=== PATIENT | male | born 1945 | race Caucasian/White ===

== ENCOUNTER 2021-12-20 14:32 | Inpatient (IN) | payer OTHER ==
[~2021-12-20] VITALS: Ht 165.1 cm; Wt 88.9 kg
[2021-12-20 14:53] VITALS: BP 119/69
--- NOTE | 2021-12-20 15:31 | NUR ---
Dr. Cano evaluating patient at bedside.
[2021-12-20] MEDS ORDERED: MORPHINE SULFATE 4 MG/ML SYR IVP ONE (15:35)
[2021-12-20] MEDS ORDERED: ONDANSETRON 4 MG/2 ML VIAL IVP ONE (15:35)
[2021-12-20] MEDS ORDERED: NACL 0.9% 1,000 ML IV ONE (15:35)
--- NOTE | 2021-12-20 15:46 | NUR ---
76 y/o male bib self with c/o lower abdominal pain x2 days ago. Patient has 7/10 burning pain level. + nausea, + vomiting. Patient is also complaining of last bowel movement was 3 days ago. Patient's stomach is noted to be firm and tender. Medical History: HTN, Arthritis and GERD NKDA
--- NOTE | 2021-12-20 15:47 | NUR ---
Patient was taken to maging via gurney.
--- NOTE | 2021-12-20 15:53 | NUR ---
Patient returned from imaging
--- NOTE | 2021-12-20 16:12 | NUR ---
76/M PRESENTS TO ED WITH C/O LOWER ABDOMINAL PAIN, N/V X2 DAYS. REPORTS PAIN IS 7/10 "BURNING" LIKE PAIN, REPORTS LAST BOWEL MOVEMENT WAS 3 DAYS AGO. ABDOMEN IS FIRM AND TENDER, DENIES TAKING MEDS FOR SYMPTOMS.
[2021-12-20 16:23] LABS: HEMATOCRIT 44.8 % (36-52); HEMOGLOBIN 14.5 g/dL (12.0-18.0); MEAN CORPUSCULAR HEMOGLOBIN 29 pg (27-31); MEAN CORPUSCULAR HGB CONC 32 g/dL (33-37); MEAN CORPUSCULAR VOLUME 87.8 fL (80-94); PLATELET COUNT (AUTO) 323 K/uL (140-450); RED CELL DISTRIBUTION WIDTH 15.2 % (11.6-13.7)
[2021-12-20] MEDS ORDERED: PIPERACILLIN/TAZOBACTAM 3.375 GM in DEXTROSE 5% 50 ML IV ONE (16:25)
[2021-12-20] MEDS ORDERED: NACL 0.9% 2,000 ML IV ONE (16:35)
[2021-12-20 16:40] LABS: ALBUMIN 2.3 g/dL (3.4-5.0); ANION GAP 12.9 (8-16); ASPARTATE AMINOTRANSFERASE 21 U/L (15-37); CARBON DIOXIDE 26.5 mmol/L (21-32); CHLORIDE 106 mmol/L (98-107); CREATININE 1.9 mg/dL (0.6-1.3); GLUCOSE 109 mg/dL (74-106); LIPASE 58 U/L (73-393); POTASSIUM 4.4 mmol/L (3.5-5.1); SODIUM SERUM 141 mmol/L (136-145); TOTAL BILIRUBIN 2.1 mg/dL (0.0-1.0); UREA NITROGEN, BLOOD 38 mg/dL (7-18)
[2021-12-20] MEDS ORDERED: PIPERACILLIN/TAZOBACTAM 3.375 GM VIAL IV ONE (16:42)
--- NOTE | 2021-12-20 16:49 | NUR ---
FARHAT specimen obtained, handed to CPT Deborah at bedside.
[2021-12-20] MEDS ORDERED: MORPHINE SULFATE 2 MG/ML SYR IVP PRN (16:55)
[2021-12-20] MEDS ORDERED: POTASSIUM CHLORIDE 40 MEQ, LIDOCAINE MPF 1% 25 MG in NACL 0.9% 250 ML IV PRN (16:55)
[2021-12-20] MEDS ORDERED: ONDANSETRON 4 MG/2 ML VIAL IM/IVP PRN (16:55)
[2021-12-20] MEDS ORDERED: HYDROcodone/APAP 5/325 MG 1 TAB TAB PO PRN ×2 (16:55→22:40)
[2021-12-20] MEDS ORDERED: DOCUSATE SODIUM 100 MG GELCAP PO PRN (16:55)
[2021-12-20] MEDS ORDERED: ACETAMINOPHEN 325 MG TAB PO PRN (16:55)
[2021-12-20] MEDS ORDERED: SODIUM PHOS / POTASSIUM PHOS 1 PKT PDR PO PRN (16:55)
[2021-12-20] MEDS ORDERED: MAG SULF 2000 MG/WATER PREMIX 50 ML IV PRN (16:55)
[2021-12-20 16:58] LABS: LYMPHOCYTES % (MANUAL) 8 % (20-46); MONOCYTES % (MANUAL) 1 % (5-12)
[2021-12-20] MEDS ORDERED: BENA20TA PO (17:07)
[2021-12-20] MEDS ORDERED: ALLO100T21 PO ×2 (17:07→17:19)
--- NOTE | 2021-12-20 17:13 | NUR ---
Ultrasound at bedside.
[2021-12-20] MEDS ORDERED: TAMS0.4C97 PO (17:19)
[2021-12-20] MEDS ORDERED: GEMF600T5 PO (17:19)
[2021-12-20 17:21] LABS: PHOSPHORUS 5.1 mg/dL (2.5-4.9)
--- NOTE | 2021-12-20 17:32 | NUR ---
Ellen caballero in [facility] - 12/20/21 at 1811 [address] [place] [employer] at bedside.
[2021-12-20 17:47] LABS: APPEARANCE,URINE CLEAR (CLEAR); BILIRUBIN,URINE 2+ (NEGATIVE); BLOOD, URINE NEGATIVE (NEGATIVE); LEUKOCYTE ESTERASE ,URINE NEGATIVE (NEGATIVE); PH,URINE 5.5 (5.0-9.0); UGLUCOSE NEGATIVE (NEGATIVE)
[2021-12-20 17:53] LABS: COLOR,URINE AMBER (YELLOW); NITRITE, URINE NEGATIVE (NEGATIVE)
--- NOTE | 2021-12-20 18:10 | NUR ---
Radiology at bedside
--- NOTE | 2021-12-20 18:22 | NUR ---
Patient will be admitted to care of Dr. butcher. Admited to Telemetry. Will go to room 120-A. Belongings list completed. Report to REYNALDO Hung.
--- NOTE | 2021-12-20 18:25 | NUR ---
The patient's care was reviewed and supervised by Mariajose Alegria RN.
[2021-12-20 18:30] VITALS: BP 117/70
--- NOTE | 2021-12-20 18:30 | NUR ---
RECEIVED PT FROM ER NURSE KG. PT WAS WHEELED VIA GURNEY FROM ER. PT ABLE TO AMBULATE FROM GURNEY TO BED. PT AWAKE. A&O4, ABLE TO COMMUNICATE NEEDS. RESPIRATIONS EVEN AND UNLABORED ON RA. NO DISTRESS NOTED. NO COMPLAINTS OF PAIN. PT ON TELE MONITOR. SKIN IS INTACT, WARM AND DRY TO TOUCH. IV SITE ON LAC 20G, SL AND RAC 20G WITH 2 BAGS NS RUNNING BOLUS. V/S STABLE. MRSA SWAB TAKEN. PT ORIENTED TO ROOM, UNIT AND ROUTINE. CALL LIGHT WITHIN REACH. SAFETY PRECAUTIONS IN PLACE. WILL CONTINUE TO MONITOR.
--- NOTE | 2021-12-20 18:50 | NUR ---
PT ON NPO. WILL ENDORSE TO INCOME TAX RETURN PREPARER NURSE.
[2021-12-20] MEDS ORDERED: fentaNYL citrate 0.05 MG/ML VIAL ONE ×2 (19:09→20:37)
[2021-12-20] MEDS ORDERED: PROPOFOL 200 MG/20 ML VIAL IV ONE (19:09)
--- NOTE | 2021-12-20 19:10 | NUR ---
ENDORSED PT TO ELECTRONIC OPERATOR NURSE FOR CONTINUITY OF CARE. ALL NEEDS MET THROUGHOUT SHIFT. PT IS STABLE.
[2021-12-20] MEDS ORDERED: SUCCINYLCHOLINE CHLORIDE 200 MG/10 ML VIAL IVP ONE (19:11)
[2021-12-20] MEDS ORDERED: PHENYLEPHRINE 10 MG/ML VIAL ONE (19:14)
--- NOTE | 2021-12-20 19:15 | NUR ---
RERCEIVED REPORT FROM LEISA INSURANCE COMMISSIONER FOR CONTINUITY OF CARE. PT IS STABLE IN BED. NEW ADMIT MRSA SWAB OBTAINED. VSS:BP-132/81, P-77, R-20, T-97.1, H1HXA=083% ON RM AIR. OR TEAM READY TO TAKE PT TO OR FOR LAP CHOLECYSTECTOMY. LEFT [facility] UNIT AT 1925.
[2021-12-20] MEDS ORDERED: SEVOFLURANE 250 ML BTL INH ONE (19:45)
[2021-12-20] MEDS ORDERED: ROCURONIUM 50 MG/5 ML VIAL IV ONE (20:03)
[2021-12-20] MEDS ORDERED: ePHEDrine 50 MG/ML VIAL ONE (20:06)
[2021-12-20] MEDS ORDERED: BUPIVACAINE-MPF 0.25% 30 ML VIAL INJ ONE (22:00)
[2021-12-20] MEDS ORDERED: LIDOCAINE/EPI 1% 1:100000 20 ML VIAL INJ ONE (22:00)
[2021-12-20] MEDS ORDERED: SUGAMMADEX SODIUM 200 MG/2 ML VIAL IV ONE (22:18)
--- NOTE | 2021-12-20 22:27 | NUR ---
Received notification from OR that pt will be admiited to ICU post abdominal surgery by Dr Rj PETERS
--- NOTE | 2021-12-20 22:35 | NUR ---
CHARGE NURSE REPORTED PT WILL BE GOING TO ICU AFTER OR.
[2021-12-20] MEDS ORDERED: HYDROmorphone 1 MG/ML AMP IVP PRN (22:40)
[2021-12-20] MEDS ORDERED: ONDANSETRON 4 MG/2 ML VIAL IV PRN (22:40)
[2021-12-20] MEDS ORDERED: MORPHINE SULFATE 4 MG/ML SYR IV PRN (22:40)
[2021-12-20 23:00] VITALS: BP 162/82
--- NOTE | 2021-12-20 23:00 | NUR ---
@ [id number] Received pt from OR accompanied by OR nurses , report received at bedside from Dr Miguel Ross, pt awake, alert sami speaking oxygen 6lters via mask no sign of shortness of breadth, O2 SAT 96% assisted with repositioning in bed, call light at reach, bed in low position colostomy on the left lower quadrant, stoma pink bloody drainage, surgical incision covered dressing unable to assess the site, TOM bilb drain serous sanguinous , lopez care done inserted in OR, continuos orientatiion to the unit education on care plan ongoing support to alleviates anxiety.@[id number] .
[2021-12-21] VITALS (17 sets, daily range): BP systolic 94–132; BP diastolic 58–74
[2021-12-21] MEDS ORDERED: PIPERACILLIN/TAZOBACTAM 2.25 GM VIAL IV ONE ×2 (00:26→05:46)
[2021-12-21] MEDS: PIPERACILLIN/TAZOBACTAM 2.25 GM in DEXTROSE 5% 50 ML IV SCH ×3 (00:38→12:30)
[2021-12-21] MEDS: DEXT 5% /NACL 0.9% 1,000 ML IV SCH ×3 (00:40→14:32)
--- NOTE | 2021-12-21 02:00 | NUR ---
@[id number] pt was fully awake cpmplain of abdominal pain 03/04 exretianting "bad as he said, Dilaudid 0.5mg ivp given on reassessmnet he verbalized relief and denies pain vitals signs stable. True Sosa drained 50cc. pt restful asleep.
[2021-12-21 06:00] LABS: BASOPHILS % (AUTO) 0.1 % (0.0-2.0); EOSINOPHILS % (AUTO) 0.1 % (0.0-4.0); HEMATOCRIT 42.1 % (36-52); HEMOGLOBIN 13.6 g/dL (12.0-18.0); LYMPHOCYTES # (AUTO) 0.9 K/uL (2.0-11.5); LYMPHOCYTES % (AUTO) 4.5 % (20.5-51.1); MEAN CORPUSCULAR HEMOGLOBIN 29 pg (27-31); MEAN CORPUSCULAR HGB CONC 32 g/dL (33-37); MEAN CORPUSCULAR VOLUME 88.1 fL (80-94); MONOCYTES # (AUTO) 0.3 K/uL (0.8-1.0); MONOCYTES % (AUTO) 1.5 % (1.7-9.3); NEUTROPHILS # (AUTO) 19.6 K/uL (1.8-7.7); NEUTROPHILS % (AUTO) 93.8 % (42.2-75.2); PLATELET COUNT (AUTO) 282 K/uL (140-450); RED BLOOD CELL COUNT(AUTO) 4.78 MIL/uL (4.20-6.10); RED CELL DISTRIBUTION WIDTH 15.8 % (11.6-13.7); WHITE BLOOD COUNT (AUTO) 20.9 K/uL (4.8-10.8)
[2021-12-21 06:08] LABS: ANION GAP 13.9 (8-16); CARBON DIOXIDE 23.4 mmol/L (21-32); CHLORIDE 110 mmol/L (98-107); CREATININE 1.4 mg/dL (0.6-1.3); GLUCOSE 119 mg/dL (74-106); POTASSIUM 4.3 mmol/L (3.5-5.1); SODIUM SERUM 143 mmol/L (136-145)
[2021-12-21 06:24] LABS: UREA NITROGEN, BLOOD 29 mg/dL (7-18)
--- NOTE | 2021-12-21 07:01 | NUR ---
PT 's daughter called updates given on pt's condition tolerating well all care and treatments, vitals signs stable, pain well palliated with medication, no complain incision site dry intact with dressing
--- NOTE | 2021-12-21 07:15 | NUR ---
Change of shift report at bedside given to ENID RN and GISSEL ophthalmology surgical technician site checked together as at this time pt awake alert denies pain vital signs stable restful and no changes in care plan
--- NOTE | 2021-12-21 07:26 | NUR ---
RECEIVED REPORT FROM BATTERY INSPECTOR REYNALDO SAWANT. Addendum: 12/21/21 at 0728 by Cameron Covarrubias RN RECEIVED REPORT FROM BATTERY INSPECTOR REYNALDO KC
--- NOTE | 2021-12-21 07:29 | NUR ---
phone call from dr grubbs, updated regarding pt condition. dr ordered to continue npo, allow sips of water only due to concern for postop ileus. monitor in icu for now.
[2021-12-21] MEDS: ENOXAPARIN 30 MG/0.3 ML SYR SUBQ SCH (08:15)
[2021-12-21] MEDS: PANTOPRAZOLE 40 MG INJ VIAL IVP SCH (08:15)
--- NOTE | 2021-12-21 08:55 | NUR ---
PATIENT HAS BEEN SCREENED AND CATEGORIZED HIGH NUTRITION RISK. PATIENT WILL BE SEEN WITHIN 1-2 DAYS OF ADMISSION. / RUPERTO CASTRO RD
--- NOTE | 2021-12-21 09:22 | NUR ---
PATIENT ALERT AND ONLY SPEAKS ARABIC. MILD WHEEZES AUSCULTATED UPPER LOBES OF THE LUNGS. PATIENT ON OXYGEN 6L/MIN VIA NASAL MASK. PATIENT IS NPO. COLOSTOMY INTACT ON LOWER LEFT ABDOMEN. TOM DRAIN PRESENT AND DRAINING WELL LIGHT RED IN COLOR. PATIEN ON SINUS RHYTHM. VITALS NORMAL AT THIS TIME. NS 0.9% RUNNING AT 80ML/HR. MORNING MEDS GIVEN ORDERED.
--- NOTE | 2021-12-21 10:03 | NUR ---
DR. CHAVEZ WITH PATIENT AT BEDSIDE.
--- NOTE | 2021-12-21 10:57 | NUR ---
12/21/21 RD INITIAL ASSESSMENT COMPLETED PLEASE REFER TO NUTRITION ASSESSMENT UNDER CARE ACTIVITY FOR ESTIMATED NUTRITIONAL NEEDS. 1. WHEN/IF MEDICALLY APPROPRIATE, GRADUALLY ADVANCE DIET TO CLEAR LIQUIDS AND TO REGULAR DIET TOLERATED 2. MONITOR GI SYMPTOMS AND NUTRITION-RELATED LAB VALUES 3. RD TO FOLLOW-UP 3-5 DAYS, MODERATE RISK RUPERTO CASTRO RD
--- NOTE | 2021-12-21 12:02 | NUR ---
DC PLANNIN YRS OLD MALE PATIENT WAS ADMITTED FROM HOME WITH A DX OF DIVERTICULITIS, PERORATED ,PNEUMOPERITONEUM. PATIENT HAS A HX OF DM, HTN, HLD, AND GOUT. CXR NO EVIDENCE OF ACUTE CARDIOPULMONARY DISEASE. CT ABD AND ABD US SHOWED NO BOWEL OBSTRUCTION, LIKELY SIGMOID DIVERTICULITIS WITH PERFORATION AND PNEUMOPERITONEUM. RAPID COVID TEST NEGATIVE. WBC 20.9 ADMINISTERED IVF, IV ABX ZOSYN. CONSULTED WITH SURGEON, ID AND PULMO. DR PETERS PERFORMED EXP LAP/SIGMOID COLECTOMY AND DIVERTING END COLOSTOMY WITH TOM DRAINAGE. DC PLAN TO GO HOME WHEN STABLE CM TO FOLLOW
--- NOTE | 2021-12-21 12:15 | NUR ---
SEEN AND EXAMINED BY DR RUIZ.
--- NOTE | 2021-12-21 12:45 | NUR ---
family at bedside.
--- NOTE | 2021-12-21 13:57 | NUR ---
XRAY AT BEDSIDE FOR KUB
--- NOTE | 2021-12-21 14:55 | NUR ---
SEEN AND EXAMINED BY DR PETERS, RECEIVED VERBAL TELE TRANSFER ORDERS.
--- NOTE | 2021-12-21 15:30 | NUR ---
patient resting and denies any c/o pain.
--- NOTE | 2021-12-21 18:00 | NUR ---
PT TRANSFERRED TO TELE BED 112B WITH GISSEL JACOBS.
--- NOTE | 2021-12-21 18:30 | NUR ---
patient transferred to [facility].
[2021-12-21] MEDS: PIPERACILLIN/TAZOBACTAM 3.375 GM in DEXTROSE 5% 50 ML IV SCH (18:33)
--- NOTE | 2021-12-21 19:20 | NUR ---
REPORT GIVEN MST WINDOW CLEANER REYNALDO GREEN.
--- NOTE | 2021-12-21 19:21 | NUR ---
RECEIVED ENDORSEMENT FROM DAY SHIFT NURSE FOR CONTINUITY OF PT CARE. PT IS AWAKE, ALERT AND VERBALLY RESPONSIVE IN ROMANIAN. PT IS FULL CODE, NOT KNOWN ALLERGY. RESPIRATION EVEN, NO SOB OR DISTRESS. SKIN COLOR IS NORMAL. PT IS ON NPO AND CAN HAVE ICE CHIPS. SALINE LOCK PRESENT ON RIGHT AND LEFT AC, BOTH ARE INTACT AND PATENT, IV FLUID D5 NS IS INFUSING WELL AT 80 ML/HR. NO REDNESS/RASHES OR SIGN/SYMPTOM OF INFECTION ON SKIN SURROUNDING IV SITE. PT DENIED OF PAIN/DISCOMFORT, HEADACHE OR DIZZINESS. COLOSTOMY STOMA NOTED WITHIN THE NORMAL, TOM DRAIN INTACT AND PATENT, HERCULES CATHETER INTACT AND PATENT.
--- NOTE | 2021-12-21 22:00 | NUR ---
PT IS ASLEEP. NO FACIAL GRIMACING.
[2021-12-22] VITALS: BP 121/68
--- NOTE | 2021-12-22 00:20 | NUR ---
PT IS ASLEEP, IVF IS INTACT AND INFUSING WELL.
[2021-12-22] MEDS: PIPERACILLIN/TAZOBACTAM 3.375 GM in DEXTROSE 5% 50 ML IV SCH ×4 (00:45→19:23)
[2021-12-22 04:00] VITALS: BP 119/67
[2021-12-22] MEDS: DEXT 5% /NACL 0.9% 1,000 ML IV SCH ×2 (07:00→19:23)
--- NOTE | 2021-12-22 07:20 | NUR ---
ENDORSED TO DAY SHIFT NURSE FOR CONTINUITY OF PT CARE. PT IS ON STABLE CONDITION.
--- NOTE | 2021-12-22 07:25 | NUR ---
PATIENT A&OX4, MALAWIAN SPEAKING. 6L/MIN VIA O2 MASK. SR ON MONITOR, CAPILLARY REFILL <3 SECONDS. 20G TO RAC INFUSING D5NS @ 80 ML/HR. 20G TO LAC, SALINE LOCK. COLOSTOMY INTACT ON LLQ. TOM DRAIN PRESENT IN RLQ AND DRAINING WELL, LIGHT RED FLUID. F/C TO GRAVITY DRAINING CLEAR YELLOW URINE. MIDLINE INCISION NOTED, NO ERYTHEMA OR PUS. AARON INTACT. STANDARD PRECAUTION. CALL LIGHT WITHIN REACH. BED IN LOWEST POSITION.
[2021-12-22 07:42] LABS: BASOPHILS % (AUTO) 0.1 % (0.0-2.0); EOSINOPHILS # (AUTO) 0.1 K/uL (0-0.4); EOSINOPHILS % (AUTO) 0.9 % (0.0-4.0); HEMATOCRIT 37.1 % (36-52); HEMOGLOBIN 12.1 g/dL (12.0-18.0); LYMPHOCYTES # (AUTO) 0.6 K/uL (2.0-11.5); LYMPHOCYTES % (AUTO) 4.2 % (20.5-51.1); MEAN CORPUSCULAR HEMOGLOBIN 29 pg (27-31); MEAN CORPUSCULAR HGB CONC 33 g/dL (33-37); MEAN CORPUSCULAR VOLUME 88.4 fL (80-94); MONOCYTES # (AUTO) 0.3 K/uL (0.8-1.0); MONOCYTES % (AUTO) 1.9 % (1.7-9.3); NEUTROPHILS % (AUTO) 92.9 % (42.2-75.2); PLATELET COUNT (AUTO) 209 K/uL (140-450); RED CELL DISTRIBUTION WIDTH 15.3 % (11.6-13.7)
[2021-12-22 08:00] VITALS: BP 141/81
[2021-12-22] MEDS: PANTOPRAZOLE 40 MG INJ VIAL IVP SCH (08:56)
[2021-12-22] MEDS: ENOXAPARIN 30 MG/0.3 ML SYR SUBQ SCH (08:57)
--- NOTE | 2021-12-22 09:00 | NUR ---
PT C/O NAUSEA. MEDICATED WITH PRN ZOFRAN 4MG.
--- NOTE | 2021-12-22 09:30 | NUR ---
NAUSEA RESOLVED. PT STATED HE IS FEELING BETTER.
[2021-12-22 12:00] VITALS: BP 135/78
--- NOTE | 2021-12-22 12:45 | NUR ---
FAMILY AT BEDSIDE. ALL COMFORT NEEDS MET AT THIS TIME.
--- NOTE | 2021-12-22 13:50 | NUR ---
CALLED SECURITY REGARDING PT BELONGINGS. PT STATES THEY WERE GIVEN TO SECURITY. SECURITY AT BEDSIDE.
--- NOTE | 2021-12-22 14:45 | NUR ---
SECURITY FOUND PT BELONGINGS AND THEY WERE RECEIVED BY PT.
[2021-12-22 15:30] LABS: ANION GAP 10.9 (8-16); CARBON DIOXIDE 24.9 mmol/L (21-32); CHLORIDE 110 mmol/L (98-107); CREATININE 1.2 mg/dL (0.6-1.3); GLUCOSE 103 mg/dL (74-106); POTASSIUM 3.8 mmol/L (3.5-5.1); SODIUM SERUM 142 mmol/L (136-145); UREA NITROGEN, BLOOD 17 mg/dL (7-18)
[2021-12-22 16:00] VITALS: BP 119/74
--- NOTE | 2021-12-22 18:35 | NUR ---
CONTACTED ALBA TANG ABOUT LEAKING HERCULES DESPITE EFFORTS TO REINFLATE THE BALLOON AND ADVANCE THE CATHETER. ORDERS TO D/C HERCULES RECEIVED.
--- NOTE | 2021-12-22 18:40 | NUR ---
D/C HERCULES. PT TOLERATED WELL. EDUCATED ON THE USE OF URINAL. PT VERBALIZED UNDERSTANDING.
--- NOTE | 2021-12-22 18:42 | NUR ---
FAMILY AT BEDSIDE.
--- NOTE | 2021-12-22 19:31 | NUR ---
ENDORSED REPORT TO PETER TRANSPORT CONDUCTOR RN FOR CONTINUITY OF CARE.
--- NOTE | 2021-12-22 19:32 | NUR ---
RECEIVED ENDORSEMENT FROM DAY SHIFT NURSE FOR CONTINUITY OF PT CARE. PT IS ON BED, AWAKE, ALERT AND VERBALLY RESPONSIVE IN KYRGYZ, PT IS ON STABLE CONDITION. PT IS FULL CODE, NOT KNOWN ALLERGY. RESPIRATION EVEN, NO SOB OR DISTRESS. SKIN COLOR IS NORMAL. MD PROGRESS DIET TO CLEAR LIQUID DIET. SALINE LOCK ON RIGHT AC IS DISLODGED AND WAS DC. LEFT AC INTACT AND PATENT, IV FLUID D5 NS IS INFUSING WELL AT 80 ML/HR. NO REDNESS/RASHES OR SIGN/SYMPTOM OF INFECTION ON SKIN SURROUNDING IV SITE. PT VERBALIZED OF TOLERABLE SURGICAL PAIN/DISCOMFORT WHEN MOVES. PT DENIED OF HEADACHE OR DIZZINESS. COLOSTOMY STOMA NOTED WITHIN THE NORMAL, TOM DRAIN INTACT AND PATENT. HERCULES CATHETER WAS DISCONTINUED AT 1840. PT DENIED OF FEELING URINATING AT THIS TIME.
[2021-12-22 20:00] VITALS: BP 134/73
--- NOTE | 2021-12-22 22:00 | NUR ---
PT IS AWAKE, ALERT, VERBALIZED BEARABLE PAIN WHEN MOVE.
[2021-12-23] VITALS: BP 126/76
--- NOTE | 2021-12-23 00:10 | NUR ---
PT IS ASLEEP SOUNDLY. NO FACIAL GRIMACING
[2021-12-23] MEDS: PIPERACILLIN/TAZOBACTAM 3.375 GM in DEXTROSE 5% 50 ML IV SCH ×5 (00:30→23:59)
--- NOTE | 2021-12-23 02:00 | NUR ---
PT IS USING URINAL. URINE IS CONCENTRATE. NO COMPLAINTS OF PAIN.
[2021-12-23 04:00] VITALS: BP 133/74
--- NOTE | 2021-12-23 04:00 | NUR ---
PT IS AWAKEN FOR VITAL SIGNS, COOPERATIVE. DENIED OF PAIN OR DISCOMFORT.
[2021-12-23 07:15] LABS: BASOPHILS % (AUTO) 0.2 % (0.0-2.0); EOSINOPHILS # (AUTO) 0.1 K/uL (0-0.4); EOSINOPHILS % (AUTO) 1.1 % (0.0-4.0); HEMATOCRIT 37.4 % (36-52); HEMOGLOBIN 12.2 g/dL (12.0-18.0); LYMPHOCYTES # (AUTO) 0.7 K/uL (2.0-11.5); MEAN CORPUSCULAR HEMOGLOBIN 29 pg (27-31); MEAN CORPUSCULAR HGB CONC 33 g/dL (33-37); MEAN CORPUSCULAR VOLUME 88.9 fL (80-94); MONOCYTES # (AUTO) 0.3 K/uL (0.8-1.0); MONOCYTES % (AUTO) 3.1 % (1.7-9.3); NEUTROPHILS # (AUTO) 9.1 K/uL (1.8-7.7); PLATELET COUNT (AUTO) 221 K/uL (140-450); RED BLOOD CELL COUNT(AUTO) 4.21 MIL/uL (4.20-6.10); WHITE BLOOD COUNT (AUTO) 10.3 K/uL (4.8-10.8)
--- NOTE | 2021-12-23 07:30 | NUR ---
RECEIVED REPORT FROM MEDICAL SUPPORT SPECIALIST NURSE. NO S/S OF DISTRESS. CALL LIGHT IN REACH ALL SAFETY MEASURES IN PLACE. 3L NC
--- NOTE | 2021-12-23 07:30 | NUR ---
ENDORSED PATIENT TO DAY SHIFT NURSE FOR CONTINUITY OF PT CARE. PT IS ON STABLE CONDITION.
[2021-12-23] MEDS: DEXT 5% /NACL 0.9% 1,000 ML IV SCH ×2 (07:37→23:46)
[2021-12-23 07:40] LABS: ANION GAP 12.6 (8-16); CARBON DIOXIDE 24.3 mmol/L (21-32); CHLORIDE 109 mmol/L (98-107); CREATININE 1.1 mg/dL (0.6-1.3); GLUCOSE 112 mg/dL (74-106); POTASSIUM 3.9 mmol/L (3.5-5.1); SODIUM SERUM 142 mmol/L (136-145); UREA NITROGEN, BLOOD 20 mg/dL (7-18)
[2021-12-23 08:00] VITALS: BP 122/75
[2021-12-23] MEDS: ENOXAPARIN 30 MG/0.3 ML SYR SUBQ SCH (08:28)
--- NOTE | 2021-12-23 08:53 | NUR ---
PT WAS OFF NC WHEN ARRIVED TO ADMINISTER MEDICATION. GRAIN PICKER VITALS OBTAINED NOTED 02 AT 91% ON RA. PT O2 REAPPLIED AND TITRATED TO 2L NC. PT DENIES SOB AND DISCOMFORT. CALL LIGHT IN REACH. ALL SAFETY MEASURES IN PLACE
[2021-12-23] MEDS: PANTOPRAZOLE 40 MG INJ VIAL IVP SCH (08:55)
[2021-12-23 09:18] LABS: LYMPHOCYTES % (AUTO) 6.7 % (20.5-51.1); NEUTROPHILS % (AUTO) 88.9 % (42.2-75.2)
[2021-12-23 12:00] VITALS: BP 130/72
--- NOTE | 2021-12-23 12:03 | NUR ---
PT STATES ANXIETY OVER EATING, WORRIED THAT IT WILL CAUSE HIM ABDOMINAL DISCOMFORT. PT EDUCATED AND DISCUSSED STANDING AND WALKING TO RELIEVE GAS PAIN. PT DENIES PAIN, N/V. PT VERBALIZED UNDERSTANDING. CALL LIGHT IN REACH. ALL SAFETY MEASURES IN PLACE
--- NOTE | 2021-12-23 15:29 | NUR ---
SPOKE TO DR. PETERS, SUTURE REMOVER KITS AT BEDSIDE PER REQUEST. TOM DRAIN EMPTIED, 50ML OUT. PT WAS ABLE TO STAND AND WALK WITHIN ROOM. EDUCATED PT ON WALKING TO RESTROOM A START. PT VERBALIZED UNDERSTANDING. NO S/S OF DISTRESS. CHANGED PT BANDAGE ON ABDOMEN, AARON INTACT, WELL APPROXIMATED. INFORMED PT THAT DR. PETERS WILL BE REMOVING TOM DRAIN TOMORROW. CALL LIGHT IN REACH. ALL SAFETY MEASURES IN PLACE. PT DENIES PAIN AT THIS TIME
[2021-12-23 16:00] VITALS: BP 145/62
--- NOTE | 2021-12-23 17:29 | NUR ---
IS PROVIDED BY RT. TEST INSPECTION ENGINEER WAS AT BEDSIDE, IV WAS INFILTRATED. IV REMOVED, CANULA INTACT. NEW IV OBTAINED IN LEFT FOREARM 20G. CT NOTIFIED TO COME BACK FOR PT TRANSFER
--- NOTE | 2021-12-23 17:50 | NUR ---
PT TAKEN FOR CT VIA WHEELCHAIR
--- NOTE | 2021-12-23 19:03 | NUR ---
ENDORSED PT TO WASTE OIL PUMPER NURSE. NO S/S OF DISTRESS. CALL LIGHT IN REACH. ALL SAFETY MEASURES IN PLACE. IV RUNNING PER MD ORDER. 2L NC
--- NOTE | 2021-12-23 19:04 | NUR ---
RECEIVED ENDORSEMENT FROM DAY SHIFT NURSE FOR CONTINUITY OF PT CARE. PT IS ON BED, AWAKE, ALERT AND VERBALIZED NEEDS. IS AT BEDSIDE. PT VERBALIZED THAT HE FEELS BETTER TODAY AFTER AMBULATION. EDUCATE PT ABOUT STATUS POST SURGERY PROCESS. IV FLUID IS INFUSING WELL AT LEFT FOREARM, D5NS AT 80ML/HR. PT IS ON STABLE CONDITION. NO SOB OR DISTRESS. CALL LIGHT WITHIN THE REACH.
[2021-12-23 20:00] VITALS: BP 132/66
--- NOTE | 2021-12-23 20:30 | NUR ---
PT O2 SAT ON VITAL SIGNS CHECKED BY MEDICAL TERMINOLOGIST IS 89%, UPON ASSESSMENT PT HAS NO O2 INHALATION, PT TOOK OFF NC AND O2 SAT RANGING 85-89%. EDUCATE PT AND ASSIST NC PLACEMENT BACK ON, O2 INHALATION AT 2 LPM, O2 SAT = 93%. NO SOB OR DISTRESS. PT VERBALIZED COMFORTABLE. CALL LIGHT WITHIN THE REACH.
[2021-12-23] MEDS: guaiFENesin 600 MG TABER PO SCH (21:00)
--- NOTE | 2021-12-23 21:52 | NUR ---
12/23/21 RD FOLLOW UP COMPLETED. PLEASE REFER TO NUTRITION ASSESSMENT UNDER CARE ACTIVITY FOR ESTIMATED NUTRITIONAL NEEDS. 1. CONTINUE WITH FULL LIQUID DIET. WHEN/IF MEDICALLY APPROPRIATE, GRADUALLY ADVANCE DIET TO REGULAR DIET TOLERATED 2. MONITOR GI SYMPTOMS AND NUTRITION-RELATED LAB VALUES 3. RD TO FOLLOW-UP IN 3-5 DAYS PATIENT IS MODERATE RISK. TIN WALLACE RD
--- NOTE | 2021-12-23 23:00 | NUR ---
PT IS AWAKE AND REQUESTED ASSISTANCE WITH URINAL, PT DENIED OF HAVING PAIN OR DISCOMFORT AT THIS TIME. SURGICAL DRESSING IS CLEAN AND DRY. CALL LIGHT WITHIN THE REACH.
[2021-12-24] VITALS: BP 132/66
--- NOTE | 2021-12-24 00:30 | NUR ---
TOM DRAINED = 50 CC OUTPUT. PT IS SLEEPING. NO SOB OR DISTRESS. CALL LIGHT WITHIN THE REACH.
--- NOTE | 2021-12-24 01:45 | NUR ---
PT IS ASLEEP AND NOTE RELAX, CALL LIGHT WITHIN THE REACH.
--- NOTE | 2021-12-24 03:45 | NUR ---
ASSISTED PT USING URINAL. COLOSTOMY CLEAN, NO NOTED STOOL IN COLOSTOMY BAG. NO SOB OR DISTRESS.
[2021-12-24 04:00] VITALS: BP 140/81
[2021-12-24] MEDS: PIPERACILLIN/TAZOBACTAM 3.375 GM in DEXTROSE 5% 50 ML IV SCH ×3 (05:25→17:24)
[2021-12-24 06:42] LABS: BASOPHILS % (AUTO) 0.5 % (0.0-2.0); EOSINOPHILS # (AUTO) 0.2 K/uL (0-0.4); EOSINOPHILS % (AUTO) 2.1 % (0.0-4.0); HEMATOCRIT 36.3 % (36-52); HEMOGLOBIN 11.9 g/dL (12.0-18.0); LYMPHOCYTES # (AUTO) 0.8 K/uL (2.0-11.5); LYMPHOCYTES % (AUTO) 9.8 % (20.5-51.1); MEAN CORPUSCULAR HEMOGLOBIN 29 pg (27-31); MEAN CORPUSCULAR HGB CONC 33 g/dL (33-37); MEAN CORPUSCULAR VOLUME 87.7 fL (80-94); MONOCYTES # (AUTO) 0.4 K/uL (0.8-1.0); MONOCYTES % (AUTO) 5.4 % (1.7-9.3); NEUTROPHILS # (AUTO) 6.4 K/uL (1.8-7.7); NEUTROPHILS % (AUTO) 82.2 % (42.2-75.2); PLATELET COUNT (AUTO) 222 K/uL (140-450); RED BLOOD CELL COUNT(AUTO) 4.14 MIL/uL (4.20-6.10); WHITE BLOOD COUNT (AUTO) 7.8 K/uL (4.8-10.8)
[2021-12-24 06:51] LABS: ANION GAP 10.8 (8-16); CARBON DIOXIDE 26.8 mmol/L (21-32); CHLORIDE 109 mmol/L (98-107); CREATININE 1.1 mg/dL (0.6-1.3); GLUCOSE 108 mg/dL (74-106); POTASSIUM 3.6 mmol/L (3.5-5.1); SODIUM SERUM 143 mmol/L (136-145); UREA NITROGEN, BLOOD 21 mg/dL (7-18)
--- NOTE | 2021-12-24 07:14 | NUR ---
DRAINED TOM = 10 CC.
--- NOTE | 2021-12-24 07:15 | NUR ---
PT IS ON STABLE CONDITION, DENIES OF PAIN, DISCOMFORT, HEADACHE OR DIZZINESS. NO SOB OR DISTRESS. IV INFUSING SELL. CALL LIGHT WITHIN THE REACH. ENDORSE TO DAY SHIFT NURSE FOR CONTINUITY OF PT CARE.
[2021-12-24 08:00] VITALS: BP 124/67
--- NOTE | 2021-12-24 08:00 | NUR ---
RECEIVED REPORT FROM PULP BLEACHER FOR CONTINUITY OF CARE. PATIENT ALERT AWAKE ORIENTED X4, SWAZI SPEAKING ONLY. DENIES PAIN AT THIS TIME. WITH IVF ON GOING AND INFUSING WELL. ON MONITOR SHOWS SR WITH PAC. WITH COLOSTOMY ON LEFT SIDE OF THE ABDOMEN INTACT. NO OUTPUT NOTED. START ON FULL LIQUID DIET AND TOLERATING WELL. WITH TOM OUTPUT OF 60 ML. CALL LIGHT WITHIN REACH. NEEDS ATTENDED. WILL CONTINUE TO MONITOR.
[2021-12-24] MEDS: guaiFENesin 600 MG TABER PO SCH ×2 (08:27→21:38)
[2021-12-24] MEDS: PANTOPRAZOLE 40 MG INJ VIAL IVP SCH (08:27)
[2021-12-24] MEDS: ENOXAPARIN 30 MG/0.3 ML SYR SUBQ SCH (08:34)
--- NOTE | 2021-12-24 10:30 | NUR ---
PT AMBULATES PATIENT, TOLERATING WELL. WILL CONTINUE TO MONITOR.
--- NOTE | 2021-12-24 11:43 | NUR ---
SEEN BY DR. PETERS AND REMOVED TOM.
[2021-12-24] MEDS: DEXT 5% /NACL 0.9% 1,000 ML IV SCH (11:52)
[2021-12-24 12:00] VITALS: BP 135/69
[2021-12-24] MEDS ORDERED: LEVO-315 PO (15:13)
[2021-12-24] MEDS ORDERED: LACT1.4C PO (15:13)
[2021-12-24] MEDS ORDERED: METR-520 PO (15:13)
--- NOTE | 2021-12-24 15:37 | NUR ---
DC PLANNING: THE PATIENT PRESENTED FROM HOME WITH C/O ABDOMINAL PAIN. WBC'S 21, BANDS 28, CT ABDOMEN/PELVIS SHOWS LIKELY SIGMOID DIVERTICULITIS WITH PERFORATION AND PNEUMOPERITONEUM. SURGICAL CONSULT RECOMMENDED URGENT SURGERY, TO OR FOR EXPLORATORY LAP, LYSIS OF ADHESIONS, DRAINAGE OF FECALENT PERITONITIS AND SIGMOID COLECTOMY WITH DIVERTING END COLOSTOMY. THE PATIENT LIVES WITH HIS TWO DAUGHTERS AND SPOUSE IN A 2 STORY HOUSE BUT HIS BEDROOM IS ON THE FIRST FLOOR. HE WAS INDEPENDENT IN ALL ACTIVITIES PRIOR TO SURGERY, HIS DAUGHTER STATES HE WILL NEED MORE ASSISTANCE NOW. HE HAS A PMD THAT HE SAW 2 MONTHS AGO. SHABBIR CALLED THE PATIENTS NURSE REGARDING FAMILY TEACHING AND SUPPLIES, THIS HAS NOT BEEN INITIATED, DC ORDER IN PLACE. SHABBIR CALLED THE WOUND CARE NURSE MEL TO NOTIFY HER OF THE NEW COLOSTOMY. MEL STATES SHE WILL EVALUATE THE PATIENT AND WRITE NOTES AND AN ORDER FOR SUPPLIES, RECOMMENDS HOME HEALTH. SHABBIR THEN SPOKE WITH THE PATIENTS DAUGHTER EMMA AGAIN TO EXPLAIN THE NEED FOR HIS TO LEARN COLOSTOMY CARE, SHE STATES THAT HER SISTER DOMINICK WHO LIVES WITH THE PATIENT IS OFF TOMORROW AND CAN ALSO COME, SHABBIR WILL NEED TO SPEAK WITH HER TO ARRANGE ([phone]). SHABBIR ALSO CALLED ABRAHAM AT [employer] THE PATIENT HAS MEDICARE A ONLY TO ASK ABOUT COVERAGE FOR SUPPLIES. ABRAHAM WILL CALL SHABBIR WITH AN ANSWER HE NEEDS TO SOURCE ANOTHER MILLING SUPERVISOR. SHABBIR THEN SPOKE WITH DOMINICK BY PHONE TO UPDATE HER AND LET HER KNOW ABOUT TEACHING AND POTENTIAL OUT OF POCKET COSTS FOR THE OSTOMY SUPPLIES AND HOME HEALTH. SHABBIR WILL FOLLOW UP IN AM AND WILL SPEAK WITH FAMILY AGAIN. Addendum: 12/25/21 at 1202 by Lilia Cody CM DC PLANNING: SHABBIR SPOKE WITH ADMISSIONS REGARDING PATIENT M/JAKI, HE HAS A SOC OF $1275 THAT HAS TO BE MET BEFORE HIS SUPPLIES AND HOME HEALTH CAN BE COVERED BY M/JAKI. CM THEN SPOKE HIS DAUGHTER DOMINICK AND EXPLAINED THE CRITERIA FOR HIS M/JAKI COVERAGE. DOMINICK AND THE PATIENT SPOUSE WILL BE HERE THIS MORNING FOR OSTOMY CARE INSTRUCTION, PATIENTS NURSE GORDON IS AWARE. CM FAXED ORDERS FOR OSTOMY SUPPLIES TO [facility] ([phone]) AND ASKED FOR OUT OF POCKET PRICING AND TIMELINE TO PROVIDE SUPPLIES. CM WILL FOLLOW. Addendum: 12/26/21 at 0903 by Lilia Cody CM DC PLANNING: CM SPOKE WITH SUJATA AT [facility] ([phone]), THEY ARE ABLE TO ACCEPT MEDICARE A AND BILL STRAIGHT MEDICARE FOR SERVICES INCLUDING OSTOMY SUPPLIES. REFERRAL FAXED TO [facility], THEY WILL ALSO WORK ON OSTOMY SUPPLIES WITH [facility]. SUJATA WILL CALL ONCE CASE IS REVIEWED. CM WILL FOLLOW. Addendum: 12/26/21 at 1017 by Lilia Cody CM DC PLANNING: THE PATIENT IS ACCEPTED ON SERVICE WITH [employer] ([phone]), START OF SERVICE TOMORROW. CM SPOKE WITH THE PATIENTS DAUGHTER DOMINICK BY PHONE TO ENDORSE DC TODAY AND START OF CARE WITH [employer]. FAMILY WILL STREET ROLLER ENGINEER THE PATIENT AT AROUND 1700 TODAY, PATIENTS RN MADE AWARE. CM WILL FOLLOW.
[2021-12-24 16:00] VITALS: BP 143/70
--- NOTE | 2021-12-24 16:17 | NUR ---
WOUND CARE EVALUATION NOTE: WOUND CARE DONE WITH THIS 76 Y/O PT. WITH S/P EX LAP W/ SIGMOID COLECTOMY, DIVERTING END COLOSTOMY, AND PERITONEAL LAVAGE ON 12/20/21. POC DISCUSSED WITH PRIMARY RN AND SEASONER HAND FOR ABDOMINAL WOUND CARE AND COLOSTOMY SUPPLIES. INTEGUMENTARY: -MID ABDOMINAL SURGICAL WOUNDS MULTIPLE AARON IN PLACE, CLEAN, NO S/S OF WOUND DEHISCENCE -LLQ ABD COLOSTOMY, PAM STOMA SKIN CLEAN AND INTACT, STOMA MOIST, BEEFY RED, ROUND SHAPE 1 5/8 (41MM), PROTRUSION 0.5CM , LUMEN OPENING TO 6 OCLOCK RECOMMENDATIONS: -PRIMARY RN CONTINUE TEACHING WOUND CARE AND COLOSTOMY CARE. -FOLLOW UP WITH SURGEON IN 7-10 DAYS UPON DISCHARGE -CLEANSE MID ABDOMEN AARON/ WOUND WITH NS. PAT DRY. APPLY ABDOMINAL BINDER WHEN UP FOR AMBULATION -OSTOMY CARE PER PROTOCOL AND DURING OSTOMY CARE PLEASE FOLLOW INSTRUCTION BELOW: -CHECK PAM STOMA SKIN CONDITION EVERY TIME WAFER CHANGED Q 5 DAYS AND PRN IF DISPLACED -APPLY SKIN PREP TO PAM-OSTOMY SKIN -APPLY STOMA ADHESIVE PAST TO THE WAFER, NEAR THE EDGE OF STOMA SKIN AREA, PAT FLAT. APPLY SKIN PREP TO PAM-STOMA SKIN - USE 1- PIECE EDUARDO OSTOMY DEVICES WITH 1 5/8 (41MM), FLEX TO FIT THE STOMA EXACTLY. NO SKIN SHOWING. APPLY PRE-SHAPE WAFER TO OSTOMY AND ATTACHED POUCH TO WAFER. CHANGE WAFER Q5 DAYS. -EMPTY AND RINSE POUCH WHEN IT IS 1/2 FULL. CHANGE POUCH Q5 DAYS AND PRN IF LEAK -MAY DISCHARGE HOME WITH SUPPLIES FOLLOWIN COMPLETE POUCH CHANGES 1 TUBE OF STOMA ADHESIVE PASTE 1 BOTTLE OF STOMA ADHESIVE POWDER 4 SKIN PREP Addendum: 12/24/21 at 1645 by Jamal Coughlin (Grace) RN POC DISCUSSED WITH PT. VIA SHAILAE GUARD SUPERVISOR ROBERTA [phone], HOWEVER, IT HAS INTERRUPTED DURING CONVERSATION AND BEEN DISCONNECTED DUE TO WIFI ISSUE. PER PT. HE UNDERSTAND SOME TRINIDADIAN AND UNDERSTAND TO LEARN COLOSTOMY CARE AND FOLLOW UP WITH SURGEON.
--- NOTE | 2021-12-24 17:10 | NUR ---
RECEIVED REPORT FROM DOMENIC JACOBS FOR CONTINUOUS OF CARE.
--- NOTE | 2021-12-24 19:29 | NUR ---
ENDORSED PT TO RECEPTIONIST SECRETARY NURSE FOR CONTINUOUS OF CARE
--- NOTE | 2021-12-24 19:30 | NUR ---
RECEIVED REPORT FROM DAY SHIFT NURSE DOMENIC FOR CONTINUITY OF CARE. PATIENT WAS LYING IN BED RESTING. IV SITE LFA 20G. PATIENT HAS COLOSTOMY BAG PLACED ON THE . PATIENT HAS NOT HAD A BOWEL MOVEMENT YET. TOM WAS REMOVED TODAY. PATIENT HAS CLOSED ABDOMINAL INCISION FROM SURGERY ON THE . PATIENT IS ON ROOM AIR, BREATHING IS NORMAL WITH SYMMETRICAL RISE AND FALL OF CHEST. BED IS IN LOWEST POSITION, WHEELS LOCKED, CALL LIGHT IN PLACE. WILL CONTINUE TO OBSERVE.
[2021-12-24 20:00] VITALS: BP 128/83
--- NOTE | 2021-12-24 21:45 | NUR ---
ADMINISTERED 2100 MEDICATIONS TO PATIENT AT 2138. PATIENT TOLERATED WELL. PATIENT WAS SLEEPING IN HIGH FOWLERS POSITION. COLOSTOMY BAG IS EMPTY. PATIENT IS DEMONSTRATING ACTIVE BOWEL MOVEMENTS WITH PASSING OF GAS. PATIENT'S BED IS IN LOWEST POSITION, WHEELS LOCKED, CALL LIGHT IN REACH. PATIENT REQUESTED LIGHT BE TURNED OFF SO HE CAN GO BACK TO SLEEP. TURNED OFF LIGHT UPON EXITING ROOM. WILL CONTINUE TO OBSERVE.
--- NOTE | 2021-12-24 23:40 | NUR ---
EMPTIED 360ML FROM URINAL. PATIENT WAS SLEEPING IN BED. BREATHING WAS NORMAL WITH SYMMETRICAL RISE AND FALL IN CHEST. WILL CONTINUE TO OBSERVE.
[2021-12-25] MEDS: PIPERACILLIN/TAZOBACTAM 3.375 GM in DEXTROSE 5% 50 ML IV SCH ×5 (00:06→23:10)
--- NOTE | 2021-12-25 00:11 | NUR ---
ADMINISTERED 0000 IVPB. PATIENT WAS SLEEPING. BED WAS IN LOWEST POSITION WITH WHEELS LOCKED, AND CALL LIGHT IN REACH. BREATHING WAS NORMAL WITH SYMMETRICAL RISE AND FALL OF CHEST. WILL CONTINUE TO OBSERVE.
--- NOTE | 2021-12-25 02:30 | NUR ---
LOOKED IN ON PATIENT. PATIENT WAS SLEEPING. BREATHING WAS NORMAL WITH SYMMETRICAL RISE AND FALL OF CHEST. WILL CONTINUE TO OBSERVE.
[2021-12-25 04:00] VITALS: BP 132/72
--- NOTE | 2021-12-25 05:15 | NUR ---
LOOKED IN ON PATIENT. PATIENT WAS SLEEPING. BREATHING WAS NORMAL WITH SYMMETRICAL RISE AND FALL OF CHEST. BED WAS IN LOWEST POSITION, WHEELS LOCKED, CALL LIGHT IN PLACE. WILL CONTINUE TO OBSERVER PATIENT.
--- NOTE | 2021-12-25 06:50 | NUR ---
ADMINISTERED 0600 IVPB TO PATIENT. PATIENT WAS SLEEPING. BREATHING WAS NORMAL WITH SYMMETRICAL RISE AND FALL OF CHEST. WILL CONTINUE TO OBSERVE.
[2021-12-25 07:07] LABS: BASOPHILS % (AUTO) 0.4 % (0.0-2.0); EOSINOPHILS # (AUTO) 0.1 K/uL (0-0.4); EOSINOPHILS % (AUTO) 1.5 % (0.0-4.0); HEMATOCRIT 37.5 % (36-52); HEMOGLOBIN 12.3 g/dL (12.0-18.0); LYMPHOCYTES # (AUTO) 1.1 K/uL (2.0-11.5); MEAN CORPUSCULAR HEMOGLOBIN 29 pg (27-31); MEAN CORPUSCULAR HGB CONC 33 g/dL (33-37); MEAN CORPUSCULAR VOLUME 87.7 fL (80-94); MONOCYTES # (AUTO) 0.5 K/uL (0.8-1.0); MONOCYTES % (AUTO) 5.2 % (1.7-9.3); NEUTROPHILS # (AUTO) 7.8 K/uL (1.8-7.7); NEUTROPHILS % (AUTO) 81.9 % (42.2-75.2); PLATELET COUNT (AUTO) 241 K/uL (140-450); RED BLOOD CELL COUNT(AUTO) 4.28 MIL/uL (4.20-6.10); RED CELL DISTRIBUTION WIDTH 14.7 % (11.6-13.7); WHITE BLOOD COUNT (AUTO) 9.6 K/uL (4.8-10.8)
[2021-12-25 07:30] LABS: ANION GAP 14.1 (8-16); CARBON DIOXIDE 24.3 mmol/L (21-32); CHLORIDE 104 mmol/L (98-107); CREATININE 0.9 mg/dL (0.6-1.3); GLUCOSE 91 mg/dL (74-106); POTASSIUM 3.4 mmol/L (3.5-5.1); SODIUM SERUM 139 mmol/L (136-145); UREA NITROGEN, BLOOD 19 mg/dL (7-18)
--- NOTE | 2021-12-25 07:35 | NUR ---
ENDORSED CONTINUITY OF CARE TO DAY SHIFT. PATIENT IS STABLE.
--- NOTE | 2021-12-25 07:48 | NUR ---
Got report from the night nurse , pt sleeping , no SOB. [id number]
[2021-12-25] MEDS: PANTOPRAZOLE 40 MG INJ VIAL IVP SCH ×2 (09:35→09:43)
[2021-12-25] MEDS: guaiFENesin 600 MG TABER PO SCH ×2 (09:36→21:14)
[2021-12-25] MEDS: ENOXAPARIN 30 MG/0.3 ML SYR SUBQ SCH (09:38)
[2021-12-25] MEDS: GAUZE TP SCH (12:14)
--- NOTE | 2021-12-25 14:36 | NUR ---
PHYSICAL THERAPY CO-SIGN The Physical Therapy Progress Notes documented by Collator Operator have been reviewed. Reviewed/Co-Signed by: Erin Wolfe Documentation Done by: ELGIN CORONA PTA Addendum: 12/25/21 at 1436 by Erin Wolfe PT Amended: Links added.
[2021-12-25 16:00] VITALS: BP 140/81
--- NOTE | 2021-12-25 18:40 | NUR ---
PT FAMILY EDUCATED ON THE COLOSTOMY BAG CARE, EMPTIED ABOUT 100 CC BM FROM THE COLOSTOMY BAG, TRACY
--- NOTE | 2021-12-25 19:30 | NUR ---
RECD RESTING IN BED, AWAKE, A/OX4. RESPIRATION EVEN AND UNLABORED. IV OF NS INFUSING AT TKO, LEFT FOREARM G20. INCISION IN THE MIDDLE OF ABDOMEN WITH AARON COVERED WITH DRESSING, DRY AND INTACT. WITH COLOSTOMY BAG AT THE LEFT SIDE OF ABDOMEN DRAINING MODERATE AMOUNT OF BROWN LIQUID STOOLS. ON FULL LIQUID DIET, TOLERATED WELL. DENIES PAIN 0/10.
--- NOTE | 2021-12-25 20:00 | NUR ---
Patient's Plan of Care was discussed and reviewed with MAURO Soni:
--- NOTE | 2021-12-25 21:15 | NUR ---
SCHEDULED MEDICATIONS FOR THE NIGHT ADMINISTERED.
[2021-12-26] VITALS: BP 135/75
--- NOTE | 2021-12-26 | NUR ---
SLEEPING COMFORTABLY IN BED, RESPIRATION EVEN AND UNLABORED. CALL LIGHT IN REACH.
--- NOTE | 2021-12-26 02:00 | NUR ---
CHECKED PATIENT, USING THE URINAL TO VOID. HAD VOIDED THREE TIMES ALREADY.
--- NOTE | 2021-12-26 04:30 | NUR ---
WITH 300 ML LIQUID STOOLS. CHANGED COLOSTOMY BAG.
[2021-12-26] MEDS: PIPERACILLIN/TAZOBACTAM 3.375 GM in DEXTROSE 5% 50 ML IV SCH (05:02)
--- NOTE | 2021-12-26 07:30 | NUR ---
ENDORSED TO AM SHIFT NURSE FOR CONTINUITY OF CARE.
--- NOTE | 2021-12-26 07:31 | NUR ---
RECEIVED REPORT FROM REGIONAL LOSS PREVENTION MANAGER NURSE. IN STABLE CONDITION. NO DISTRESS NOTED. COLOSTOMY BAG IN PLACE, IV SITE INTACT, PATENT, ON TKO PER MD ORDERS. REVIEWED PLAN OF CARE WITH PATIENT. SAFETY MEASURES IN PLACE, CALL LIGHT WITHIN REACH. WILL CONTINUE TO MONITOR.
[2021-12-26 08:00] VITALS: BP 150/88
[2021-12-26] MEDS: ENOXAPARIN 30 MG/0.3 ML SYR SUBQ SCH (08:54)
[2021-12-26] MEDS: guaiFENesin 600 MG TABER PO SCH (08:54)
--- NOTE | 2021-12-26 08:55 | NUR ---
SCHEDULED MEDICATIONS DUE GIVEN. WILL CONTINUE TO MONITOR.
[2021-12-26] MEDS: GAUZE TP SCH (12:11)
--- NOTE | 2021-12-26 12:54 | NUR ---
SCHEDULED MEDICATIONS DUE GIVEN. WILL CONTINUE TO MONITOR.
--- NOTE | 2021-12-26 13:00 | NUR ---
DC PLANNING PATIENT IS A 76 YEAR OLD MALE ADMITTED TO THE [facility]/ED ON 12/20/2021. DUE TO HAVING 2 DAY HISTORY OF MILD TO MODERATE BURNING AND NON-RADIATING, LOWER ABDOMINAL PAIN WITH ASSOCIATED NAUSEA AND VOMITING. SW MEET WITH PATIENT AT BEDSIDE TO DISCUSS AND GATHER HIS COLLATERAL INFORMATION. PATIENT WAS WAKE AND ALERT AT THE TIME OF VISIT. PATIENT REPORTED HAVING GOOD FAMILY SUPPORT AND REPORTED NOT HAVING A.D.IN PLACE, PATIENT DECLINED INF. FORMS PROVIDED BY [facility] AND REPORTED THAT HIS FAVIAN SAWANT IS HIS EMERGENCY CONTACT AND MEDICAL DECISION MAKER. PATIENT REPORTED NOT HAVING ISSUES GETTING OR TAKING HIS MEDICATIONS AND HAVING A GOOD RELATIONSHIP WITH HIS PCP PER PATIENT HE GOES TO THE DOCTOR ABOUT ONCE A MONTH AND GETS HIS MEDICATIONS FROM THE LOCAL [facility]. PATIENT REPORTED NOT HAVING OR NEEDING DME AND WANTING TO GO HOME WHEN HE IS READY FOR DISCHARGE. PATIENT STATED THAT HIS OR DAUGHTER WILL BE PICKING HIM UP AND ASSIST HIM WITH TRANSPORTATION. PATIENT THANKED [facility] FOR THE RESOURCES PROVIDED TO IN-HOME SUPPORTIVE SERVICES ([facility]). SW WILL FOLLOW UP NEEDED.
[2021-12-26 16:00] VITALS: BP 135/82
--- NOTE | 2021-12-26 17:32 | NUR ---
AND DAUGHTER AT BEDSIDE TO TAKE PATIENT HOME. DISCHARGE INSTRUCTIONS PROVIDED TO PATIENT/FAMILY AT BEDSIDE IN [facility], PATIENT PREFERRED DAUGHTER TO TRANSLATE. INSTRUCTIONS ON NEW MEDICATIONS, SIDE EFFECTS, DIET REGIMEN, AND FOLLOW-UP WITH PCP AND SURGEON. ANSWERED ALL OF PATIENT'S QUESTIONS REGARDING DISCHARGE. TO HELP PATIENT GET DRESSED THEN GOING TO WHEEL PATIENT DOWN. IV SITE REMOVED WITH MINIMAL BLOOD AND LUMEN COMPLETELY INTACT.
--- NOTE | 2021-12-26 17:45 | NUR ---
PATIENT DISCHARGED AT THIS TIME TO HOME IN PRIVATE VEHICLE IN STABLE CONDITION.
== END 2021-12-26 17:45 | disposition home or self-care (01) | DRG 853 ==
LOC: MED 14:32 → MTU 16:55 → MIC 23:22 → MTU 12-21 18:00
PROVIDERS: ADMIT Hospitalist; ATTEND Hospitalist
PROC: 0D1N0Z4 Bypass Sigmoid Colon to Cutaneous, Open Approach (ICD-10-PCS; principal; 2021-12-21)
PROC: 0DBN0ZZ Excision of Sigmoid Colon, Open Approach (ICD-10-PCS; 2021-12-21)
PROC: 3E1M38Z Irrigation of Peritoneal Cavity using Irrigating Substance, Percutaneous Approach (ICD-10-PCS; 2021-12-21)
PROC: 0DNU0ZZ Release Omentum, Open Approach (ICD-10-PCS; 2021-12-21)
DX: A41.9 Sepsis, unspecified organism (principal); E43 Unspecified severe protein-calorie malnutrition; N17.0 Acute kidney failure with tubular necrosis; R65.21 Severe sepsis with septic shock; J96.01 Acute respiratory failure with hypoxia; K65.8 Other peritonitis; K57.20 Diverticulitis of large intestine with perforation and abscess without bleeding; J98.11 Atelectasis; E78.5 Hyperlipidemia, unspecified; I10 Essential (primary) hypertension; N40.0 Benign prostatic hyperplasia without lower urinary tract symptoms; E86.0 Dehydration; K76.9 Liver disease, unspecified; M10.9 Gout, unspecified; N28.1 Cyst of kidney, acquired; Z20.822 Contact with and (suspected) exposure to COVID-19; Z79.899 Other long term (current) drug therapy; Z68.32 Body mass index [BMI] 32.0-32.9, adult
CPT/HCPCS: 36415; 71045; 74018; 76705; 80048; 80053; 81003; 83605; 83690; 83735; 84100; 85025; 86886; 86900; 86901; 86920; 87040; 87081; 88307; 93005; 96361; 96365; 96375; 97112; 97116; 97530; 99291; 99292; C9113; J0330; J1170; J1650; J2001; J2270; J2370; J2405; J2543; J2704; J3010; J3490; J7030; J7060; Q0092; Q9967

== ENCOUNTER 2023-06-24 07:30 | Day surgery (SDC) | payer OTHER, MEDICAID ==
[~2023-06-24] VITALS: Ht 154.9 cm; Wt 95.3 kg
[~2023-06-24 07:30] MED LIST: ALLO100T21 PO; BENA20TA PO; GEMF600T5 PO; LACT1.4C PO; LEVO-481 PO; METR-520 PO; TAMS0.4C97 PO
[2023-06-24] MEDS ORDERED: fentaNYL citrate 0.05 MG/ML VIAL ONE (08:35)
[2023-06-24] MEDS ORDERED: MIDAZOLAM 5 MG/5 ML VIAL ONE (08:36)
[2023-06-24] MEDS: MIDAZOLAM 5 MG/5 ML VIAL IV ONE (08:40)
[2023-06-24] MEDS: fentaNYL citrate 0.05 MG/ML VIAL IVP ONE (08:41)
[2023-06-24] MEDS: LIDOCAINE 2% 100 MG/5 ML UJET TP ONE (08:47)
== END 2023-06-24 10:30 | disposition home or self-care (01) ==
LOC: MMU 07:30 → MDS 07:30
PROVIDERS: ATTEND Surgery
DX: Z43.2 Encounter for attention to ileostomy (principal); K57.30 Diverticulosis of large intestine without perforation or abscess without bleeding; K52.9 Noninfective gastroenteritis and colitis, unspecified; Z98.0 Intestinal bypass and anastomosis status; Z90.49 Acquired absence of other specified parts of digestive tract; Z79.899 Other long term (current) drug therapy
CPT/HCPCS: 45378; 82948; J2250; J3010